=== PATIENT | female | born 1990 | race Caucasian/White ===

== ENCOUNTER 2018-09-16 18:37 | Emergency (ER) | payer BC ==
[2018-09-16] MEDS ORDERED: SUMAtriptan 6 MG/0.5 ML SDV SUBCUT ONE (18:39)
--- NOTE | 2018-09-16 18:41 | EDM.PDOC ---
ED HPI GENERAL MEDICAL PROBLEM - General Stated Complaint: MIGRAINE AND DIZZY Time Seen by Provider: 09/16/18 18:39 Source of Information: Reports: Patient, Family History Limitations: Reports: No Limitations - History of Present Illness INITIAL COMMENTS - FREE TEXT/NARRATIVE: 28 y.o.w.f with a h/o migraine, came to the ed with severe photophobia, nausea and pain behind her eyes, her typical migraine H/A. Imitrex SQ works best for her. No trauma, no other acute medical issues. BP 110/62 pulse 76 RR 17 Pulse ox 96% on RA Temp 36.8 Onset Date: 09/16/18 Onset Time: 09:00 Duration: Hour(s):, Intermittent Location: Reports: Head Quality: Reports: Ache, Pressure, Same as Previous Episode Severity: Moderate Improves with: Reports: Medication Worsens with: Reports: None Context: Reports: Other Associated Symptoms: Reports: Other (nausea) Migraine Pain Score (Numeric/FACES): 9 - Related Data Allergies Allergy/AdvReac Type Severity Reaction Status Date / Time droperidol Allergy Other Verified 09/16/18 18:59 Home Meds: Home Meds SUMAtriptan [Imitrex Pen Injector Kit] 6 mg SQ BID PRN #1 kit 09/16/18 [Rx] Sertraline HCl [Zoloft] 75 mg PO DAILY 09/16/18 [History] ED ROS GENERAL - Review of Systems Review Of Systems: See Below Constitutional: Reports: No Symptoms HEENT: Reports: No Symptoms Respiratory: Reports: No Symptoms Cardiovascular: Reports: No Symptoms Endocrine: Reports: No Symptoms GI/Abdominal: Reports: No Symptoms : Reports: No Symptoms Musculoskeletal: Reports: No Symptoms Skin: Reports: No Symptoms Neurological: Reports: Headache Psychiatric: Reports: No Symptoms Hematologic/Lymphatic: Reports: No Symptoms Immunologic: Reports: No Symptoms - Physical Exam Exam: See Below Exam Limited By: No Limitations General Appearance: Alert, WD/WN, Moderate Distress Eye Exam: Bilateral Eye: Normal Inspection Ears: Normal External Exam, Normal Canal Nose: Normal Inspection Throat/Mouth: Normal Inspection, Normal Lips, Normal Teeth, Normal Gums, Normal Voice, No Airway Compromise Head Exam: Atraumatic, Normocephalic Neck: Normal Inspection, Supple, Non-Tender, Full Range of Motion Respiratory/Chest: No Respiratory Distress, Lungs Clear, Normal Breath Sounds, Chest Non-Tender Cardiovascular: Normal Peripheral Pulses, Regular Rate, Rhythm, No Edema, No Gallop, No Murmur, No Rub GI/Abdominal: Normal Bowel Sounds, Soft, Non-Tender, No Organomegaly, No Abnormal Bruit, No Mass, Pelvis Stable (Female) Exam: Deferred Rectal (Female) Exam: Deferred Neuro Exam (Abbreviated): Alert, Oriented, CN II-XII Intact, Normal Cognition, Normal Gait Back Exam: Normal Inspection, Full Range of Motion Extremities: Normal Inspection, Normal Range of Motion, Non-Tender, No Pedal Edema Psychiatric: Normal Affect, Normal Mood Skin Exam: Warm, Dry, Intact, Normal Color, No Rash Course - Vital Signs Text/Narrative:: 28 y.o.w.f with a h/o migraine, came to the ed with severe photophobia, nausea and pain behind her eyes, her typical migraine H/A. Imitrex SQ works best for her. No trauma, no other acute medical issues. BP 110/62 pulse 76 RR 17 Pulse ox 96% on RA Temp 36.8 PE: WNWD W F with H/A, not the worst H/A Imaging/labs not indicated. Impression: Classic Migraine Headache Tx: Imitrex 6 MG SQ, Zofran Reexam: Symptoms improved 90% Plan: D/C with instructions Last Recorded V/S: Last Vital Signs Temp 36.7 C 09/16/18 20:30 Pulse 87 09/16/18 20:30 Resp 16 09/16/18 20:30 BP 110/70 09/16/18 20:30 Pulse Ox 100 09/16/18 20:30 - Orders/Labs/Meds Meds: Medications Discontinued Medications Generic Name Dose Route Start Last Admin Trade Name Kane PRN Reason Stop Dose Admin Ondansetron HCl 8 mg 09/16/18 18:58 09/16/18 19:01 Zofran Odt PO 09/16/18 18:59 8 mg ONETIME ONE Administration Sumatriptan Succinate 6 mg 09/16/18 18:39 09/16/18 18:55 Imitrex SUBCUT 09/16/18 18:40 6 mg ONETIME ONE Administration Departure - Departure Time of Disposition: 20:36 Disposition: Home, Self-Care 01 Condition: Good Clinical Impression: Migraine - Discharge Information Prescriptions: SUMAtriptan [Imitrex Pen Injector Kit] 6 mg SQ BID PRN #1 kit PRN Reason: migraine Instructions: Sumatriptan injection, Migraine Headache Referrals: PCP,None [Primary Care Provider] - Forms: ED Department Discharge Additional Instructions: Please increase water intake, please f/u with your PMD. apply imitrex SQ as instructed, come back if your symptoms get worse acutely
[2018-09-16] MEDS ORDERED: Ondansetron 8 MG Tab.DIS PO ONE (18:58)
== END 2018-09-16 20:45 | disposition home or self-care (01) ==
LOC: FB.ED 18:37
DX: G43.109 Migraine with aura, not intractable, without status migrainosus (principal); Z88.8 Allergy status to other drugs, medicaments and biological substances
CPT/HCPCS: 96372; 99283; A9270; J3030

== ENCOUNTER 2019-10-10 18:29 | Emergency (ER) | payer BC ==
--- NOTE | 2019-10-10 18:50 | EDM.PDOC ---
ED HPI GENERAL MEDICAL PROBLEM - General Chief Complaint: Skin Complaint Stated Complaint: RASH,HOT FACE Time Seen by Provider: 10/10/19 18:49 Source of Information: Reports: Patient History Limitations: Reports: No Limitations - History of Present Illness INITIAL COMMENTS - FREE TEXT/NARRATIVE: 29-year-old female who had onset of rash on her hands this morning that was read and somewhat burning/itching rash. She has since developed a rash on her face that is somewhat burning in a splotchy rash on her anterior upper chest and neck area that is somewhat itchy and burning. She is having no difficulty breathing. She has had no sore throat or cough. She's had no fevers. No nausea or vomiting. She has no sores or lesions in her mouth. No trouble swallowing. No weakness or dizziness. No new exposures. She reports that the burning sensation is a 7-8/10. She has been on Lamictal since August of 2019 and her psychiatrist has been increasing the dose steadily. There are no other associated signs or symptoms. There are no other modifying factors. 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: Reports: Other (see below) (Nothing) - Related Data Allergies Allergy/AdvReac Type Severity Reaction Status Date / Time droperidol Allergy Other Verified 09/16/18 18:59 Home Meds: Home Meds Ondansetron [Zofran ODT] 4 mg SL Q6HR PRN 10/10/19 [History] Rizatriptan [Maxalt LOIN TRIMMER] 10 mg PO DAILY PRN 10/10/19 [History] lamoTRIgine [LaMICtal] 150 mg PO DAILY 10/10/19 [History] Past Medical History Neurological History: Reports: Migraines Psychiatric History: Reports: Anxiety, Bipolar, Depression, Suicide Attempt - Past Surgical History Female Surgical History: Reports: Other (See Below) (Laparoscopy) Musculoskeletal Surgical History: Reports: Other (See Below) (Bilateral knee surgery) Social & Family History - Tobacco Use Smoking Status *Q: Unknown Ever Smoked (Nonsmoker) - Alcohol Use Alcohol Use History: Yes Alcohol Use Frequency: Socially - Living Situation & Occupation 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 Denies: Throat Pain, Throat Swelling Respiratory: Reports: No Symptoms Cardiovascular: Reports: No Symptoms GI/Abdominal: Reports: No Symptoms : Reports: No Symptoms Musculoskeletal: Reports: No Symptoms (No body aches. No joint pain.) Skin: Reports: Rash (As described above) Neurological: Reports: No Symptoms Hematologic/Lymphatic: Reports: No Symptoms Immunologic: Reports: No Symptoms ED EXAM, SKIN/RASH Exam: See Below Exam Limited By: No Limitations General Appearance: Alert, WD/WN, Mild Distress (Looks uncomfortable. No respiratory distress. Nontoxic.) Eye Exam: Bilateral Eye: EOMI, Normal Fundi Ears: Normal External Exam, Hearing Grossly Normal Nose: Normal Inspection, Normal Mucosa, No Blood Throat/Mouth: Normal Inspection, Normal Lips, Normal Oropharynx, Normal Voice, No Airway Compromise Head: Atraumatic, Normocephalic Neck: Normal Inspection, Supple, Non-Tender, Full Range of Motion Respiratory/Chest: No Respiratory Distress, Lungs Clear, Normal Breath Sounds, No Accessory Muscle Use, Chest Non-Tender Cardiovascular: Normal Peripheral Pulses, Regular Rate, Rhythm, No JVD Peripheral Pulses: 2+: Radial (L), Radial (R), Dorsalis Pedis (L), Dorsalis Pedis (R) GI/Abdominal: Normal Bowel Sounds, Soft, Non-Tender, No Mass Back Exam: Normal Inspection, Full Range of Motion Extremities: Normal Inspection, Normal Range of Motion, Non-Tender, No Pedal Edema, Normal Capillary Refill Neurological: Alert, Oriented, CN II-XII Intact, Normal Cognition, No Motor/ Sensory Deficits Psychiatric: Normal Affect Skin: Warm, Dry, Intact, Normal Color, Rash (On both hands and face and splotching on neck and upper chest. It is maculopapular. It is not rough.) Location, Skin: Face, Neck, Chest, Upper Extremity, Right (Hand), Upper Extremity, Left (Hand) Characteristics: Maculopapular Course - Vital Signs Last Recorded V/S: Last Vital Signs Temp 36.4 C 10/10/19 18:35 Pulse 90 10/10/19 19:32 Resp 18 10/10/19 19:32 BP 130/79 10/10/19 19:32 Pulse Ox 100 10/10/19 19:32 - Re-Assessments/Exams Free Text/Narrative Re-Assessment/Exam: 10/10/19 19:00: Patient with maculopapular rash on hands, face and on her upper anterior chest. She has no oral mucosal or other mucosal involvement. She is currently on Lamictal and has been having an increasing dose over time since August. She has normal vital signs and I will have her stop the Lamictal. She may take Benadryl as needed for itching or burning. She will need to contact her primary provider or her psychiatrist tomorrow in regard to rash while on this medication and they will need to direct her further treatment. Precautions and reasons for return were discussed with the patient prior to her discharge. Departure - Departure Time of Disposition: 19:15 Disposition: Home, Self-Care 01 Condition: Good (Stable) Clinical Impression: Rash Drug-induced hypersensitivity reaction Qualifiers: Encounter type: initial encounter Qualified Code(s): T78.40XA - Allergy, unspecified, initial encounter - Discharge Information Instructions: Drug Rash Referrals: PCP,None [Primary Care Provider] - Forms: ED Department Discharge Additional Instructions: Your rash is likely due to a hypersensitivity reaction related to the Lamictal. You need to stop the Lamictal. You may take Benadryl as needed for burning or itching. You need to follow-up with your primary provider or your psychiatrist tomorrow if possible (at least telephonically) in regard to this rash and for direction as to further treatment for you. Back to the emergency department for rash or sores inside your mouth other mucosal areas, high fever, trouble breathing, worsening rash despite stopping the medication or any other concerning sign or symptom. Sepsis Event Note - Evaluation Sepsis Screening Result: No Definite Risk - Focused Exam Vital Signs: Vital Signs Temp Pulse Resp BP Pulse Ox 10/10/19 19:32 90 18 130/79 100 10/10/19 18:35 36.4 C 104 H 18 132/84 100 Date Exam was Performed: 10/11/19 Time Exam was Performed: 05:29
== END 2019-10-10 19:40 | disposition home or self-care (01) ==
LOC: FB.ED 18:29
CPT/HCPCS: 99282